=== PATIENT | male | born 1965 | race Caucasian/White ===

== ENCOUNTER 2023-09-28 17:47 | Emergency (ER) | payer OTHER ==
[~2023-09-28] VITALS: Ht 187.9 cm; Wt 95.3 kg
[2023-09-28] MEDS ORDERED: VENCLEXTA100 MG PO (18:04)
[2023-09-28] MEDS ORDERED: LEVOFLOXACIN 750 MG TAB PO ONE (18:05)
[2023-09-28] MEDS ORDERED: LEVOFLOXACIN750 M2 PO (18:06)
== END 2023-09-28 18:12 | disposition home or self-care (01) ==
LOC: ED 17:47
DX: J32.9 Chronic sinusitis, unspecified (principal); E78.5 Hyperlipidemia, unspecified; I10 Essential (primary) hypertension; Z88.0 Allergy status to penicillin

== ENCOUNTER 2024-02-02 16:47 | Inpatient (IN) | payer OTHER ==
[~2024-02-02] VITALS: Ht 188 cm; Wt 133.0 kg
[2024-02-02] VITALS (8 sets, daily range): BP systolic 117–149; BP diastolic 65–86
[~2024-02-02 16:47] MED LIST: LEVOFLOXACIN750 M2 PO; VENCLEXTA100 MG PO
[2024-02-02] MEDS ORDERED: IBUPROFEN 600 MG TAB PO ONE (17:10)
[2024-02-02] MEDS ORDERED: SODIUM CHLORIDE 0.9% 1,000 ML IV ONE ×2 (17:10→19:50)
[2024-02-02] MEDS ORDERED: ACETAMINOPHEN 325 MG TAB PO ONE (17:10)
[2024-02-02 17:32] LABS: HEMATOCRIT 36.8 % (42.0-52.0); MEAN CELL VOLUME 102.8 fl (80.0-94.0); MEAN CORPUSCULAR HGB 35.5 pg (27.0-31.0); MEAN CORPUSCULAR HGB CONC 34.5 g/dl (33.0-37.0); PLATELET COUNT AUTOMATED 223 10*3/uL (130-400); RED BLOOD COUNT 3.58 10*6/uL (4.50-5.90); RED CELL DISTRI WIDTH 13.4 % (0-14.5); WHITE BLOOD COUNT 5.8 10*3/uL (4.8-10.8)
[2024-02-02 17:36] LABS: MANUAL DIFF REFLEX YES
[2024-02-02 17:52] LABS: BUN 10 mg/dl (9-23); CHLORIDE 95 mmol/L (98-107); POTASSIUM 4.1 mmol/L (3.4-5.1)
[2024-02-02 18:06] LABS: TOTAL CELLS COUNTED 100 #CELLS
[2024-02-02 18:07] LABS: PLATELET SUFFICIENCY NORMAL (NORMAL)
[2024-02-02 18:09] LABS: BILIRUBIN Negative (Negative); BLOOD Trace-Lysed (Negative); CLARITY Clear (Clear); COLOR Yellow (Yellow); GLUCOSE Negative (Negative); KETONE Negative (Negative); LEUKO ESTERASE Negative (Negative); NITRITE Negative (Negative); PH 7.5 (4.5-8.0)
[2024-02-02 18:19] LABS: RBC 0-2 rbc/hpf (0-2); WBC 0-2 wbc/hpf (0-5)
[2024-02-02 18:20] LABS: BACTERIA TRACE
[2024-02-02] MEDS ORDERED: AZITHROMYCIN 250 ML IV ONE (19:50)
[2024-02-02] MEDS ORDERED: Ceftriaxone Sodium 1 GM/10 ML SYR IV ONE (19:50)
[2024-02-02] MEDS ORDERED: [UNRECOGNIZED DRUG - OTHER] PO (20:06)
[2024-02-02] MEDS ORDERED: REMDESIVIR 200 MG in SODIUM CHLORIDE 0.9% 210 ML IV ONE (20:40)
[2024-02-02] MEDS ORDERED: Magnesium Hydroxide 30 ML UDC PO PRN (21:10)
[2024-02-02] MEDS ORDERED: Ondansetron Hydrochloride 4 MG/2 ML VIAL IV PRN (21:10)
[2024-02-02] MEDS ORDERED: ACETAMINOPHEN 325 MG TAB PO PRN (21:10)
[2024-02-02] MEDS ORDERED: DIAZEPAM 10 MG/2 ML SYR IV PRN (22:35)
[2024-02-02] MEDS ORDERED: LORazepam 1 MG TAB PO SCH (22:37)
[2024-02-03 04:26] LABS: HEMATOCRIT 35.9 % (42.0-52.0); MEAN CELL VOLUME 104.4 fl (80.0-94.0); MEAN CORPUSCULAR HGB 35.2 pg (27.0-31.0); MEAN CORPUSCULAR HGB CONC 33.7 g/dl (33.0-37.0); MEAN PLATELET VOLUME 9.9 fl (9.6-12.3); PLATELET COUNT AUTOMATED 178 10*3/uL (130-400); RED BLOOD COUNT 3.44 10*6/uL (4.50-5.90); RED CELL DISTRI WIDTH 13.8 % (0-14.5); WHITE BLOOD COUNT 3.8 10*3/uL (4.8-10.8)
[2024-02-03 04:28] LABS: MANUAL DIFF REFLEX YES
[2024-02-03 05:01] LABS: ALKALINE PHOSPHATASE 61 U/L (46-116); BUN 8 mg/dl (9-23); CHLORIDE 103 mmol/L (98-107); POTASSIUM 4.1 mmol/L (3.4-5.1); SGPT/ALT 12 U/L (5-49); TOTAL PROTEIN 5.8 gm/dL (6.0-8.0)
[2024-02-03 05:13] LABS: ATYPICAL LYMPHS 1 % (0-0); BURR CELLS FEW; PLATELET SUFFICIENCY NORMAL (NORMAL); TOTAL CELLS COUNTED 100 #CELLS
[2024-02-03 05:14] LABS: OVALOCYTES FEW
[2024-02-03 05:15] LABS: TOXIC GRANULATION SLIGHT
[2024-02-03 08:00] VITALS: BP 124/70
[2024-02-03] MEDS ORDERED: Enoxaparin Sodium 40 MG/0.4 ML SYR SC SCH (10:00)
[2024-02-03] MEDS ORDERED: GUAIFENESIN 600 MG TAB ER PO SCH (10:00)
[2024-02-03] MEDS ORDERED: MULTIVITAMIN 1 TAB TAB PO SCH (10:00)
[2024-02-03] MEDS ORDERED: FOLIC ACID 1 MG TAB PO SCH (10:00)
[2024-02-03] MEDS ORDERED: Dexamethasone Sodium Phospha 4 MG/ML VIAL IV SCH (10:00)
[2024-02-03] MEDS ORDERED: Thiamine 100 MG TAB PO SCH (10:00)
[2024-02-03] MEDS ORDERED: MED. FROM HOME 1 EACH EA PO SCH ×2 (11:32→22:00)
[2024-02-03 12:00] VITALS: BP 123/80
[2024-02-03 16:00] VITALS: BP 129/61
[2024-02-03] MEDS ORDERED: REMDESIVIR 100 MG in SODIUM CHLORIDE 0.9% 230 ML IV SCH (18:00)
[2024-02-03] MEDS ORDERED: AZITHROMYCIN 250 ML IV SCH (19:00)
[2024-02-03 20:00] VITALS: BP 126/85
[2024-02-03] MEDS ORDERED: Ceftriaxone Sodium 1 GM in SYRINGE INFUSION 10 ML IV SCH (20:00)
[2024-02-04] VITALS: BP 101/45
[2024-02-04] MEDS ORDERED: LORazepam 1 MG TAB PO SCH
[2024-02-04 05:25] LABS: ALKALINE PHOSPHATASE 62 U/L (46-116); BUN 9 mg/dl (9-23); CHLORIDE 104 mmol/L (98-107); SGPT/ALT 13 U/L (5-49); TOTAL PROTEIN 5.8 gm/dL (6.0-8.0)
[2024-02-04 06:20] LABS: HEMATOCRIT 35.6 % (42.0-52.0); MANUAL DIFF REFLEX YES; MEAN CELL VOLUME 103.8 fl (80.0-94.0); MEAN CORPUSCULAR HGB CONC 33.7 g/dl (33.0-37.0); MEAN PLATELET VOLUME 10.6 fl (9.6-12.3); PLATELET COUNT AUTOMATED 231 10*3/uL (130-400); RED BLOOD COUNT 3.43 10*6/uL (4.50-5.90); RED CELL DISTRI WIDTH 13.6 % (0-14.5); WHITE BLOOD COUNT 3.4 10*3/uL (4.8-10.8)
[2024-02-04 07:02] LABS: ATYPICAL LYMPHS 1 % (0-0); TOTAL CELLS COUNTED 100 #CELLS
[2024-02-04 07:03] LABS: BURR CELLS FEW; OVALOCYTES FEW; PLATELET SUFFICIENCY NORMAL (NORMAL); POLYCHROMASIA SLIGHT; TOXIC GRANULATION SLIGHT
[2024-02-04 08:00] VITALS: BP 113/72
[2024-02-04 11:32] VITALS: BP 114/71
[2024-02-04 16:00] VITALS: BP 111/70
[2024-02-04 20:00] VITALS: BP 111/73
[2024-02-05] VITALS: BP 108/64
[2024-02-05] MEDS ORDERED: LORazepam 1 MG TAB PO PRN (02:00)
[2024-02-05 06:56] LABS: HEMATOCRIT 38.1 % (42.0-52.0); MEAN CELL VOLUME 104.4 fl (80.0-94.0); MEAN CORPUSCULAR HGB 34.8 pg (27.0-31.0); MEAN CORPUSCULAR HGB CONC 33.3 g/dl (33.0-37.0); MEAN PLATELET VOLUME 10.4 fl (9.6-12.3); PLATELET COUNT AUTOMATED 282 10*3/uL (130-400); RED BLOOD COUNT 3.65 10*6/uL (4.50-5.90); RED CELL DISTRI WIDTH 13.7 % (0-14.5); WHITE BLOOD COUNT 3.9 10*3/uL (4.8-10.8)
[2024-02-05 07:05] LABS: MANUAL DIFF REFLEX YES
[2024-02-05 07:53] LABS: ATYPICAL LYMPHS 3 % (0-0); TOTAL CELLS COUNTED 100 #CELLS
[2024-02-05 07:54] LABS: BURR CELLS MODERATE; TOXIC GRANULATION SLIGHT
[2024-02-05 07:56] LABS: PLATELET SUFFICIENCY NORMAL (NORMAL)
[2024-02-05 07:57] LABS: ALKALINE PHOSPHATASE 66 U/L (46-116); BUN 11 mg/dl (9-23); CHLORIDE 105 mmol/L (98-107); POTASSIUM 3.4 mmol/L (3.4-5.1); SGPT/ALT 13 U/L (5-49); TOTAL PROTEIN 5.5 gm/dL (6.0-8.0)
[2024-02-05 08:00] VITALS: BP 116/78
[2024-02-05] MEDS ORDERED: DEXAMETHASONE6 MG PO ×2 (09:41→16:36)
[2024-02-05] MEDS ORDERED: VIBRA-TAB100 MG PO (09:41)
[2024-02-05] MEDS ORDERED: Vibra-Tab100 MG PO (10:29)
[2024-02-05] MEDS ORDERED: DOXYCYCLINE HY100 M3 PO (16:36)
== END 2024-02-05 10:49 | disposition home or self-care (01) | DRG 871 ==
LOC: ED 16:47 → EDHOLD 19:58 → ICCU 19:58
PROVIDERS: Nurse Practitioner Family; Student in an Organized Health Care Education/Training Program; ADMIT Family Medicine; ATTEND Family Medicine
PROC: XW033E5 Introduction of Remdesivir Anti-infective into Peripheral Vein, Percutaneous Approach, New Technology Group 5 (ICD-10-PCS; principal; 2024-02-02)
DX: A41.9 Sepsis, unspecified organism (principal); E43 Unspecified severe protein-calorie malnutrition; J12.82 Pneumonia due to coronavirus disease 2019; U07.1 COVID-19; J15.9 Unspecified bacterial pneumonia; F10.939 Alcohol use, unspecified with withdrawal, unspecified; E87.1 Hypo-osmolality and hyponatremia; C91.10 Chronic lymphocytic leukemia of B-cell type not having achieved remission; F10.930 Alcohol use, unspecified with withdrawal, uncomplicated; R09.02 Hypoxemia; D53.9 Nutritional anemia, unspecified; R73.9 Hyperglycemia, unspecified; E87.8 Other disorders of electrolyte and fluid balance, not elsewhere classified; Z78.9 Other specified health status; Z88.0 Allergy status to penicillin; Z83.3 Family history of diabetes mellitus; Z82.49 Family history of ischemic heart disease and other diseases of the circulatory system; Z68.37 Body mass index [BMI] 37.0-37.9, adult

== ENCOUNTER 2024-07-18 20:31 | Emergency (ER) | payer BC ==
[~2024-07-18] VITALS: Ht 187.9 cm; Wt 86.2 kg
[~2024-07-18 20:31] MED LIST changes: +DEXAMETHASONE6 MG PO; +DOXYCYCLINE HY100 M3 PO; +VIBRA-TAB100 MG PO; +Vibra-Tab100 MG PO; +[UNRECOGNIZED DRUG - OTHER] PO
[2024-07-18] MEDS ORDERED: Thiamine 200 MG/2 ML VIAL IV ONE (21:00)
[2024-07-18] MEDS ORDERED: SODIUM CHLORIDE 0.9% 1,000 ML IV ONE (21:00)
[2024-07-18 21:21] LABS: HEMATOCRIT 44.1 % (42.0-52.0); MEAN CELL VOLUME 107.6 fl (80.0-94.0); MEAN CORPUSCULAR HGB 36.3 pg (27.0-31.0); MEAN CORPUSCULAR HGB CONC 33.8 g/dl (33.0-37.0); MEAN PLATELET VOLUME 10.5 fl (9.6-12.3); PLATELET COUNT AUTOMATED 128 10*3/uL (130-400); RED CELL DISTRI WIDTH 12.3 % (0-14.5); WHITE BLOOD COUNT 3.3 10*3/uL (4.8-10.8)
[2024-07-18 21:22] LABS: MANUAL DIFF REFLEX YES
[2024-07-18 21:24] LABS: BILIRUBIN Negative (Negative); BLOOD Negative (Negative); CLARITY Clear (Clear); COLOR Yellow (Yellow); GLUCOSE Negative (Negative); KETONE Negative (Negative); LEUKO ESTERASE Negative (Negative); NITRITE Negative (Negative); SPECIFIC GRAVITY 1.015 (1.001-1.030)
[2024-07-18 21:31] LABS: HYALINE CAST 0-2; MUCOUS 1+; WBC 0-2 wbc/hpf (0-5)
[2024-07-18 21:41] LABS: ALKALINE PHOSPHATASE 107 U/L (46-116); BUN 8 mg/dl (9-23); CHLORIDE 98 mmol/L (98-107); LIPASE 28 U/L (12-53); POTASSIUM 3.7 mmol/L (3.4-5.1); SGPT/ALT 8 U/L (5-49); TOTAL PROTEIN 6.7 gm/dL (6.0-8.0)
[2024-07-18 21:50] LABS: TOTAL CELLS COUNTED 100 #CELLS
[2024-07-18 21:51] LABS: OVALOCYTES MODERATE; PLATELET SUFFICIENCY LOW (NORMAL)
[2024-07-18 21:52] LABS: POLYCHROMASIA SLIGHT
[2024-07-18 21:53] LABS: ATYPICAL LYMPHS 4 % (0-0)
== END 2024-07-18 23:03 | disposition home or self-care (01) ==
LOC: ED 20:31
PROVIDERS: Nurse Practitioner Family
DX: R51.9 Headache, unspecified (principal); D72.819 Decreased white blood cell count, unspecified; R53.83 Other fatigue; E87.1 Hypo-osmolality and hyponatremia; Z88.0 Allergy status to penicillin; Z79.899 Other long term (current) drug therapy; Z98.890 Other specified postprocedural states

== ENCOUNTER 2025-01-19 00:23 | Emergency (ER) | payer BC ==
[2025-01-19 00:54] LABS: MEAN CELL VOLUME 97.8 fl (80.0-94.0); MEAN CORPUSCULAR HGB 33.2 pg (27.0-31.0); MEAN PLATELET VOLUME 9.8 fl (9.6-12.3); NUCLEATED RED BLOOD CELL 0.0 % (0.0-0.0); NUCLEATED RED BLOOD CELL 0.0 10*3/uL (0.0-0.0); PLATELET COUNT AUTOMATED 217 10*3/uL (130-400); RED CELL DISTRI WIDTH 11.9 % (0-14.5)
[2025-01-19 00:55] LABS: MANUAL DIFF REFLEX YES
[2025-01-19] MEDS ORDERED: SODIUM CHLORIDE 0.9% 1,000 ML IV ONE (00:55)
[2025-01-19 01:02] LABS: BILIRUBIN Negative (Negative); BLOOD Negative (Negative); CLARITY Clear (Clear); COLOR Dark Yellow (Yellow); KETONE Trace (Negative); LEUKO ESTERASE Negative (Negative); NITRITE Negative (Negative); PH 7.0 (4.5-8.0); SPECIFIC GRAVITY 1.025 (1.001-1.030); UROBILINOGEN 1.0 E.U./dl (0.0-1.0)
[2025-01-19 01:05] LABS: ACT PARTIAL THROMBO TIME 31.3 SECONDS (20.0-32.1)
[2025-01-19 01:06] LABS: URINE AMPHETAMINES Negative (1000ng/ml); URINE BARBITURATES Negative (200ng/ml); URINE BENZODIAZEPINES Negative (200ng/ml); URINE CANNABINOIDS (THC) Negative (50ng/ml); URINE COCAINE Negative (300ng/ml); URINE METHADONE Negative (300ng/ml); URINE OPIATES Negative (300ng/ml); URINE PHENCYCLIDINE Negative (25ng/ml)
[2025-01-19 01:10] LABS: MUCOUS TRACE
[2025-01-19 01:11] LABS: WBC 0-2 wbc/hpf (0-5)
[2025-01-19 01:14] LABS: PLATELET SUFFICIENCY NORMAL (NORMAL)
[2025-01-19 01:29] LABS: BUN 7 mg/dl (9-23); SGPT/ALT 8 U/L (5-49)
[2025-01-19 01:31] LABS: ETHYL ALCOHOL < 3.0 mg/dl (<3)
== END 2025-01-19 04:52 | disposition short-term general hospital (02) ==
LOC: ED 00:23
PROVIDERS: Internal Medicine
DX: G91.2 (Idiopathic) normal pressure hydrocephalus (principal); R41.82 Altered mental status, unspecified; R53.1 Weakness; Z85.6 Personal history of leukemia; Z88.0 Allergy status to penicillin; Z79.899 Other long term (current) drug therapy